=== PATIENT | female | born 1990 | race Caucasian/White ===

== ENCOUNTER 2019-04-26 12:25 | Emergency (ER) | payer OTHER, SELFPAY ==
[2019-04-26 12:34] VITALS: BP 147/74; PULSE 148; RESP 20; TEMP 36.8; O2SAT 100
--- NOTE | 2019-04-26 12:49 | ED.URI ---
HPI - URI/Sore Throat General Chief Complaint: Upper Respiratory Infection Stated Complaint: coughing and hard to take full breath Time Seen by Provider: 04/26/19 12:49 Source: patient and family Mode of arrival: ambulatory Limitations: no limitations History of Present Illness HPI Narrative: Patient presents with sore throat cough. Patient states she has asthma and is worried that she has strep throat or influenza and is triggering her asthma. Patient is using her inhaler as prescribed. Patient denies any shortness of breath no chest pain. Patient denies any fever. Has not had any international travel and no known exposure to coronavirus. Patient states she is a normally healthy individual no trouble swallowing no drooling MD elicited complaint: sore throat and nasal congestion Related Data Home Medications Medication Instructions Recorded Confirmed bupropion HCl 300 mg PO DAILY 04/26/19 04/26/19 escitalopram oxalate 10 mg PO DAILY 04/26/19 04/26/19 lamotrigine 04/26/19 Allergies Allergy/AdvReac Type Severity Reaction Status Date / Time No Known Allergies Allergy Verified 04/26/19 13:06 Review of Systems Review of Systems: Narrative: CONSTITUTIONAL: Denies chills, or sweats. Reports fever and generalized body aches EYES: Denies visual changes, redness, or discharge. ENT: Denies otalgia. Reports nasal congestion runny nose and sore throat CARDIOVASCULAR: Denies chest pain, palpitations, or edema. RESPIRATORY: Denies dyspnea. Reports occasional cough GASTROINTESTINAL: Denies abdominal pain, nausea, vomiting, or diarrhea. GENITOURINARY: Denies dysuria or hematuria. SKIN: Denies rash or itching. MUSCULOSKELETAL: Denies back pain, joint pain, or myalgia. Reports generalized body aches NEUROLOGIC: Denies headache, numbness, or weakness. PSYCHIATRIC: Denies anxiety or depression. PMFSH Comments At time of signature, agree with nursing past medical, surgical, social and family history. There is no relevant family history pertinent to the presenting complaint Exam Narrative: Exam Narrative: The patient is a well-developed, well-nourished in no acute distress. SKIN: Skin is warm and dry without erythema, swelling or exudate. There is good turgor. No tenting. HEAD: Atraumatic. Normocephalic. No temporal or scalp tenderness. EYES: Moist and bright. Sclera and conjunctivae normal. No discharge. PERRLA. Extraocular motions intact. Gross visual acuity intact. EARS: Pinna is normal shape and contour. Clear external auditory canals. TM pearly guzman with good cone of light, no erythema or suppuration. Bilateral cerumen noted no gross hearing deficit. NOSE: pink, moist mucosa with good air movement. Clear rhinorrhea without nasal flaring. Septum midline. Mouth: moist mucous membranes. THROAT; mild erythema noted to posterior oropharynx with moderate postnasal drainage. Without exudate or ulceration.. Uvula midline. Normal movement of soft palate. NECK: Supple and nontender with full range of motion without discomfort. No meningeal signs. LUNGS: Equal and bilateral breath sounds without wheezes, rales or rhonchi. CHEST: The chest wall is without retractions or use of accessory muscles. HEART: Has a regular rate and rhythm without murmur, gallops, click or rub. ABDOMEN: Soft, nontender with positive active bowel sounds. No rebound tenderness. EXTREMITIES: Without cyanosis, clubbing or edema. Equal 2+ distal pulses and 2 second capillary refill noted. NEUROLOGIC: alert, active, . The patient moves all extremities with normal muscle strength. Normal muscle tone is noted. Normal coordination is noted. NO focal neurological findings noted. Course Vital Signs Vital signs: Vital Signs Temperature 36.8 C 04/26/19 12:34 Pulse Rate 148 H 04/26/19 12:34 Respiratory Rate 20 04/26/19 12:34 Blood Pressure 147/74 H 04/26/19 12:34 Pulse Oximetry 100 04/26/19 12:34 Temperature 36.8 C 04/26/19 12:34 Pulse Rate 148 H
== END 2019-04-26 13:25 | disposition home or self-care (01) ==
PROVIDERS: Emergency Provider Nurse Practitioner Family
DX: J06.9 Acute upper respiratory infection, unspecified (principal); J02.9 Acute pharyngitis, unspecified; J40 Bronchitis, not specified as acute or chronic
CPT/HCPCS: 87081; 87804; 87880; 99213; G0463

== ENCOUNTER 2019-05-11 16:21 | Emergency (ER) | payer OTHER, SELFPAY ==
--- NOTE | 2019-05-11 16:29 | ED.URI ---
HPI - URI/Sore Throat General Chief Complaint: Ear Stated Complaint: left ear pain Time Seen by Provider: 05/11/19 16:29 Source: patient History of Present Illness HPI Narrative: Patient presents with left ear pain. Patient states she was treated 1 week ago for URI and presents today with left ear pain. No drainage from her ear no fever no cough no exposure to covid 19, no recent travel. Patient denies any fever no shortness of breath no chest pain. Patient states she is taking Zyrtec and using Flonase daily as prescribed by visit last time. Patient states she has left ear pain. Related Data Home Medications Medication Instructions Recorded Confirmed bupropion HCl [Wellbutrin XL] 300 mg PO DAILY 04/26/19 05/11/19 escitalopram oxalate [Lexapro] 10 mg PO DAILY 04/26/19 05/11/19 lamotrigine [Lamictal] 300 mg PO DAILY 04/26/19 05/11/19 Allergies Allergy/AdvReac Type Severity Reaction Status Date / Time No Known Allergies Allergy Verified 05/11/19 16:40 Review of Systems Review of Systems: Narrative: CONSTITUTIONAL: Denies chills, or sweats. Reports fever and generalized body aches EYES: Denies visual changes, redness, or discharge. ENT: Denies otalgia. Reports nasal congestion runny nose and sore throat CARDIOVASCULAR: Denies chest pain, palpitations, or edema. RESPIRATORY: Denies dyspnea. Reports occasional cough GASTROINTESTINAL: Denies abdominal pain, nausea, vomiting, or diarrhea. GENITOURINARY: Denies dysuria or hematuria. SKIN: Denies rash or itching. MUSCULOSKELETAL: Denies back pain, joint pain, or myalgia. Reports generalized body aches NEUROLOGIC: Denies headache, numbness, or weakness. PSYCHIATRIC: Denies anxiety or depression. PMFSH Comments At time of signature, agree with nursing past medical, surgical, social and family history. There is no relevant family history pertinent to the presenting complaint Exam Narrative: Exam Narrative: GENERAL: Well-appearing, well-nourished, and in no acute distress. HEAD: Normocephalic, atraumatic. EYES: PERRLA and EOMI. ENT: Nares clear, no rhinorrhea or epistaxis. Mucous membranes moist. Left ear mild erythremia to canal TM opaque right TM intact mild dullness NECK: Supple. CHEST: Clear to auscultation. No respiratory distress. HEART: Regular rate and rhythm. No murmur heard. Normal peripheral pulses. ABDOMEN: Soft, nontender, nondistended, normal active bowel sounds. EXTREMITIES: Normal range of motion. No edema. SKIN: Warm, dry, no rash. NEURO: No focal deficits. Alert and oriented x3. [place] Coma Scale Eye Opening: Spontaneous 4 Raymon Coma Scale Motor: Obeys Commands 6 Raymon Coma Scale Verbal: Oriented 5 Raymon Coma Scale Total 15 Course Vital Signs Vital signs: Vital Signs Temperature 33.2 C L 05/11/19 16:34 Pulse Rate 145 H 05/11/19 16:34 Respiratory Rate 20 05/11/19 16:34 Blood Pressure 144/86 H 05/11/19 16:34 Pulse Oximetry 100 05/11/19 16:34 Temperature 33.2 C L 05/11/19 16:34 Pulse Rate 145 H 05/11/19 16:34 Respiratory Rate 20 05/11/19 16:34 Blood Pressure 144/86 H 05/11/19 16:34 Pulse Oximetry 100 05/11/19 16:34 Addressed elevated BP today. Today's blood pressure higher than recommended range. Discussed importance of follow -up with PCP and possible long-term effects/cardiovascular events related to HTN. Currently patient denies headache, dizziness, vision changes, CP or shortness of breath. Discussed with patient elevated pulse and has been elevated last 2 visits to express care. Patient states she has an anxious person and feels that her pulse is elevated at each express care visit. Patient also states she is evaluated by mixer attendant at [facility] and was recently seen and given a clean bill of health. Discussed with patient to monitor pulse at home and follow-up with mixer attendant as needed and if any shortness of breath or chest pain go to ER immediately further evaluation treatment. Critic
[2019-05-11 16:34] VITALS: BP 144/86; PULSE 145; RESP 20; TEMP 33.2; O2SAT 100
== END 2019-05-11 16:48 | disposition home or self-care (01) ==
PROVIDERS: Emergency Provider Nurse Practitioner Family
DX: H66.92 Otitis media, unspecified, left ear (principal)
CPT/HCPCS: 99213; G0463